=== PATIENT | female | born 1965 | race Caucasian/White ===

== ENCOUNTER 2020-06-13 00:05 | Inpatient (IN) | payer OTHER ==
[2020-06-12 04:00] VITALS: BP 135/99
[2020-06-13] VITALS (7 sets, daily range): BP systolic 103–187; BP diastolic 71–134
[~2020-06-13] VITALS: Ht 172.7 cm; Wt 124.7 kg
--- NOTE | ~2020-06-13 | EMS ---
[facility] [address] [place] [address] EMS Patient Care Report Name: COMPA FLORES Room: [address] IN [facility].#: [id number] Admission: 06/13/20 Attend Phys: Adele Ashley MD Discharge: Date of : 61 Report #: [id number] THIS REPORT FOR: //name// Report Transmitted: 06/13/2020 07:07 EMS Care Summary [facility] Incident [id number] @ 06/12/2020 23:03 Incident Location [address] [place] [address] Patient COMPA FLORES Female, 54 Years 1965 Patient Address [address] [place] [address] Patient History Cardiac Arrythmia, Patient Allergies No known allergies, Patient Medications Doxycycline, Aleve, Chief Complaint Covid-19 symptoms Disposition Transported No Lights/[place] Dispatch Reason Sick Person Transported To [facility] Narrative Dispatch: [facility] was dispatched for a female patient complaining of general weakness, and possible Covid-19 exposure. Delayed response noted for COVID 19 precautions for staff. Med 1 went enroute, non emergent, and arrived on scene. [facility] [address] [place] [address] EMS Patient Care Report Name: COMPA FLORES Room: [address] IN [facility]#: [id number] Admission: 06/13/20 Attend Phys: Adele Ashley MD Discharge: Date of : 61 Report #: [id number] Chief Complaint: Upon arrival, my partner and I find the patient sitting upright in her living room chair. Patient stated she had chest pressure, and shortness of breath. 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 She stated she "just didn't feel right." She states she has been running a fever, and experiencing weakness for the past 2 weeks. Patient did not appear to be in distress on initial contact. 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 She states she has been experiencing weakness, cough and a fever, along with chest pressure for the past 2 weeks. She states she has an irregular heartbeat, but "isn't for sure" due to not seeing her PCP. Her son stated that he feels his mother has been ill for almost a month. Assessment: Airway: Clear, patent and self maintained. Breathing: Clear and equal lung sounds bilaterally. Non labored. Circulation: Skin is pink, warm and dry. Pulse rate very weak and irregular. Disability: A&OX4, GCS 15. Exposure: No life threats were found. Reason for ambulance: Patient stated she was experiencing weakness, cough, and chest pressure due to possibly being exposed to a positive covid-19 patient. Patient decided to call 911 due to the shortness of breath. Treatments: ALS assessment. 12 lead/EKG. 3 IV attempts, 2 unsuccessful. 20G IV left hand. 400ML LR. Cardizem 0.25mg/kg (30mg IV push over 2 minutes) 2 Liters O2 via nasal canula. See section for further. Summary: Anthony Conrad arrived on scene to find the patient sitting upright in her living room chair. Patient stated she had SOB, weakness, cough and chest pressure. 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 A surgical mask was placed on the patient for covid precautions. Patient was placed onto the cot and placed into the ambulance. A 12 lead EKG was placed, and the patient presented in A-fib RVR with a heart rate of 190-200bpm. An IV was then started (attempted 3 times). We were unable obtain a manual BP after multiple attempts. Med 1 went en route to [place]. 30mg of Cardizem were given IV push over 2 minutes successfully. Patients heart rate slowly started to decline and rested around 115bpm. Patient stated her chest pressure had disappeared, and she "felt much better." 400ML of LR were given en route as well. Serial EKG's were performed throughout transport. Radio report was given to [facility] with no further orders were given. Med 1 arrived at [place] and the patient was taken to room 15 in the ED and was sheet transferred over [place] [address] EMS Patient Care Report Name: COMPA FLORES Room: [address] IN [facility].#: [id number] Admission: 06/13/20 Attend Phys: Adele Ashley MD Discharge: Date of : 61 Report #: [id number] was given to the nurse. Signatures and paperwork were received. Med 1 returned back in service. Initial Vitals @23:51P: 144,BP: 159/109,SpO2: 98,MA Suspected: false @23:24P: 184,SpO2: 100,MA Suspected: false @23:31BP: 142/76, @23:41P: 160,BP: 71/54,SpO2: 99, @23:43P: 182,BP: 142/105,SpO2: 99, @23:36P: 178,SpO2: 100,MA Suspected: false @23:16P: 190,R: 20,GCS: 15,SpO2: 77,MA Suspected: false @23:56P: 110,R: 18,GCS: 15,SpO2: 95, Assessments @23:09MENTAL:Person Oriented,Time Oriented,Event Oriented,Place Oriented,SKIN:HEENT:LUNG SOUNDS:ABDOMEN:PELVIS//GI:EXTREMITIES:PULSE:Radial: 2+ Normal,NEURO:@23:27MENTAL:Time Oriented,Person Oriented,Place Oriented,Event Oriented,SKIN:HEENT:LUNG SOUNDS:ABDOMEN:PELVIS//GI:EXTREMITIES:PULSE:Radial: 2+ Normal,NEURO: Impression Chest Pain / Discomfort Procedures @23:25Oxygen FlowRate: 2 Device: CO2 Nasal Cannula Response: ImprovedSucceeded@23:33Cardizem - 31 Milligrams (mg) - Intravenous (IV)Response: Improved@23:28Lactated Ringers 400cc (20 ga) Site: Hand-LeftResponse: UnchangedSucceeded@23:2412-Lead ECGResponse: UnchangedSucceeded@23:09ALS AssessmentResponse: UnchangedSucceeded@23:09Infectious Patient AlertResponse: Unchanged@23:26Saline Lock 0cc (20 ga) Site: Hand-RightResponse: UnchangedFailed@23:27Saline Lock 0cc (20 ga) Site: Hand-LeftResponse: UnchangedFailed Timeline 23:02,Call Received 23:03,Dispatched 23:05,En Route 23:08,On Scene 23:08,At Patient 23:09,ALS Assessment,Response: UnchangedSucceeded, 23:09,Infectious Patient Alert,Response: Unchanged 23:16,BP: / M,PULSE: 190,RR: 20 R,SPO2: 77 Ox,ETCO2: ,BG: ,PAIN: ,GCS: 15, 23:24,12-Lead ECG,Response: UnchangedSucceeded, 23:24,BP: / M,PULSE: 184,RR: R,SPO2: 100 Ox,ETCO2: ,BG: ,PAIN: ,GCS: , 23:25,Oxygen FlowRate: 2 Device: CO2 Nasal Cannula Response: ImprovedSucceeded, 23:26,Saline Lock 0cc 20 ga Site: Hand-Right,Response: UnchangedFailed, [place] [address] EMS Patient Care Report Name: COMPA FLORES Room: [address] IN [facility].#: [id number] Admission: 06/13/20 Attend Phys: Adele Ashley MD Discharge: Date of : 61 Report #: [id number] 23:27,Saline Lock 0cc 20 ga Site: Hand-Left,Response: UnchangedFailed, 23:27,Depart Scene 23:28,Lactated Ringers 400cc 20 ga Site: Hand-Left,Response: UnchangedSucceeded, 23:31,BP: 142/76 M,PULSE: ,RR: R,SPO2: Ox,ETCO2: ,BG: ,PAIN: ,GCS: , 23:33,Cardizem - 31 Milligrams (mg) - Intravenous (IV),Response: Improved 23:36,BP: / M,PULSE: 178,RR: R,SPO2: 100 Ox,ETCO2: ,BG: ,PAIN: ,GCS: , 23:41,BP: 71/54 M,PULSE: 160,RR: R,SPO2: 99 Ox,ETCO2: ,BG: ,PAIN: ,GCS: , 23:43,BP: 142/105 M,PULSE: 182,RR: R,SPO2: 99 Ox,ETCO2: ,BG: ,PAIN: ,GCS: , 23:51,BP: 159/109 M,PULSE: 144,RR: R,SPO2: 98 Ox,ETCO2: ,BG: ,PAIN: ,GCS: , 23:56,BP: / M,PULSE: 110,RR: 18 R,SPO2: 95 Ox,ETCO2: ,BG: ,PAIN: ,GCS: 15, 00:01,At Destination 00:53,Call Closed Disclaimer v1.1 Copyright 2020 [employer] This EMS Care Summary contains data elements from the applicable legal record (which may be displayed differently). It is designed to provide pertinent information for the following purposes: continuity of care, clinical quality, and state data reporting. The complete legal record is available to ED staff and administrators of the receiving hospital in [employer] Patient Tracker. All data is provided "as is."
[2020-06-13 00:41] LABS: ABSOLUTE BASOPHILS 0.1 thou/uL (0.0-0.2); ABSOLUTE EOSINOPHILS 0.2 thou/uL (0.0-0.7); ABSOLUTE LYMPHOCYTES 2.5 thou/uL (0.8-5.3); ABSOLUTE MONOCYTES 0.5 thou/uL (0.0-1.2); ABSOLUTE NEUTROPHILS 7.3 thou/uL (1.6-8.1); BASOPHILS 1.1 %; HEMATOCRIT 46.7 % (37.0-47.0); LYMPHOCYTES 23.2 %; MCH 31.9 pg (26.0-34.0); MCHC 34.3 g/dL (28.0-37.0); MPV 9.5 fl. (7.2-11.1); NUCLEATED RBCS 0 /100WBC; PLATELET COUNT* 239 thou/uL (150-400); POLYS 68.7 %; RBC 5.02 mil/uL (4.20-5.00); RDW-CV 14.4 % (10.5-14.5); WBC 10.7 thou/uL (4.0-11.0)
[2020-06-13 00:53] LABS: CREATININE 1.4 mg/dL (0.6-1.3); POTASSIUM 3.3 mmol/L (3.5-5.1)
[2020-06-13 00:56] LABS: INR 1.4
[2020-06-13 01:03] LABS: ALBUMIN 3.5 g/dL (3.4-5.0); MAGNESIUM 1.6 mg/dL (1.8-2.4); TOTAL BILIRUBIN 1.7 mg/dL (<0.1-1.0); TOTAL PROTEIN 6.8 g/dL (6.4-8.2)
[2020-06-13 02:39] LABS: URINE BILIRUBIN NEGATIVE (Negative); URINE BLOOD NEGATIVE (Negative); URINE CLARITY CLEAR; URINE COLOR YELLOW; URINE GLUCOSE-RANDOM NEGATIVE (Negative); URINE KETONES NEGATIVE (Negative); URINE NITRITE-REFLEX NEGATIVE (Negative); URINE PROTEIN NEGATIVE (Negative); URINE UROBILINOGEN 0.2 E.U./dl (0.2-1.0)
[2020-06-13 02:48] LABS: URINE LEUKOCYTES-REFLEX 2+ (Negative)
[2020-06-13 02:59] LABS: BACTERIA-REFLEX >30 Many /HPF (None Seen); CASTS None Seen /LPF (None Seen); CRYSTALS None Seen /LPF (None Seen); MUCUS 4-6 Moderate strn/LPF (None Seen); SQUAMOUS 4-10 Moderate /LPF (0-3); TRANSITIONAL EPITHEL CELL 0-3 Few /LPF (None Seen); URINE RBC 3-10 Few /HPF (0-2); URINE WBC-REFLEX >25 Many /HPF (0-5); WBC CLUMPS Moderate (None Seen)
[2020-06-13 11:10] LABS: HEMATOCRIT 45.9 % (37.0-47.0); HEMOGLOBIN 15.7 gm/dL (12.0-15.0); MCH 31.8 pg (26.0-34.0); MCHC 34.2 g/dL (28.0-37.0); MCV 93.2 fL (80.0-100.0); RBC 4.92 mil/uL (4.20-5.00); RDW-CV 14.8 % (10.5-14.5); WBC 10.4 thou/uL (4.0-11.0)
[2020-06-13 11:21] LABS: CALCIUM 9.1 mg/dL (8.5-10.1); CREATININE 1.3 mg/dL (0.6-1.3); POTASSIUM 3.1 mmol/L (3.5-5.1)
[2020-06-13 11:26] LABS: ALBUMIN 3.6 g/dL (3.4-5.0); TOTAL BILIRUBIN 1.8 mg/dL (<0.1-1.0); TOTAL PROTEIN 6.8 g/dL (6.4-8.2)
[2020-06-13 12:08] LABS: CHOLESTEROL 61 mg/dL (<200); HDL CHOLESTEROL 14 mg/dL (>40); LDL CHOLESTEROL 34 mg/dL (<100); MAGNESIUM 1.8 mg/dL (1.8-2.4); TC:HDL 4.4 Ratio (Not establshd); TOTAL BILIRUBIN 1.8 mg/dL (<0.1-1.0); TRIGLYCERIDE 66 mg/dL (<150); VLDL 13 mg/dL (<40)
[2020-06-13 12:13] LABS: SERUM ASSESSMENT Clear
--- NOTE | 2020-06-13 13:47 | 2DMMODE ---
[place] [address] 2 D/M-MODE ECHOCARDIOGRAM Name: COMPA FLORES Room: [address] IN M.R.#: [id number] Admission: 06/13/20 Attend Phys: Adele Ashley, Discharge: Date of : 61 Date of Service: 06/13/20 1347 Report #: [id number] THIS REPORT FOR: cc: FAM - No family physician/PCP FAM - No family physician/PCP Steffen Mcneal MD [facility] ~ APPROVED REPORT Study performed: 06/13/2020 10:25:49 EXAM: Comprehensive 2D, Doppler, and color-flow Echocardiogram Patient Location: Bedside BSA: 2.34 HR: 100 bpm BP: 135/99 mmHg Other Information Study Quality: Adequate Indications Atrial Fibrillation 2D Dimensions IVSd: 13.22 (7-11mm) LVOT Diam: 22.19 (18-24mm) LVDd: 44.89 mm PWd: 11.14 (7-11mm) Ascending Ao: 37.88 (22-36mm) LVDs: 37.11 (25-40mm) Aortic Root: 28.20 mm Volumes Left Atrial Volume (Systole) LA ESV Index: 36.20 mL/m2 Aortic Valve AoV Peak Nick.: 1.37 m/s AO Peak Gr.: 7.50 mmHg LVOT Max P.18 mmHg AO Mean Gr.: 4.95 mmHg LVOT Mean P.56 mmHg LVOT Max V: 0.89 m/s AO V2 VTI: 19.15 cm LVOT Mean V: 0.58 m/s BRIDGETT (VTI): 2.49 cm2 LVOT V1 VTI: 12.32 cm Mitral Valve E/A Ratio: 2.68 [place] [address] 2 D/M-MODE ECHOCARDIOGRAM Name: MARKCOMPA Room: [address] IN M.R.#: [id number] Admission: 06/13/20 Attend Phys: Adele Ashley, Discharge: Date of : 61 Date of Service: 06/13/20 1347 Report #: [id number] MV Decel. Time: 134.68 ms MV E Max Nick.: 0.96 m/s MV PHT: 39.06 ms MVA (PHT): 5.63 cm2 TDI E/Lateral E': 6.40 E/Medial E': 13.71 Medial E' Nick.: 0.07 m/s Lateral E' Nick.: 0.15 m/s Pulmonary Valve PV Peak Nick.: 0.79 m/s PV Peak Gr.: 2.49 mmHg Tricuspid Valve RAP Estimate: 20.00 mmHg TR Peak Gr.: 28.50 mmHg RVSP: 48.50 mmHg PA Pressure: 48.50 mmHg Left Ventricle The left ventricle is normal size. There is moderate diffuse hypokinesis of left ventricular wall motion. Borderline concentric left ventricular hypertrophy. Left ventricular systolic function is moderate to severely decreased. LVEF is 35%. This study is not technically sufficient to allow evaluation of the LV diastolic function due to atrial fibrillation. Right Ventricle Right ventricle is borderline dilated. The right ventricular systolic function is normal. Atria Left atrium is mildly dilated. Right atrium is mildly dilated. Aortic Valve Mild aortic valve sclerosis. No aortic regurgitation is present. There is no aortic valvular stenosis. Mitral Valve Moderate mitral annular calcification. Mild mitral regurgitation. No evidence of mitral valve stenosis. Tricuspid Valve The tricuspid valve is normal in structure. Mild to [place] [address] 2 D/M-MODE ECHOCARDIOGRAM Name: COMPA FLORES Room: [address]#: [id number] Admission: 06/13/20 Attend Phys: Adele Ashley, Discharge: Date of : 61 Date of Service: 06/13/20 1347 Report #: [id number] Pulmonic Valve The pulmonary valve is normal in structure. Trace pulmonic regurgitation. Great Vessels The aortic root is normal in size. IVC is dilated and collapses <50% with inspiration. Pericardium There is no pericardial effusion. <Conclusion> The left ventricle is normal size. Left ventricular systolic function is moderate to severely decreased. LVEF is 35%. This study is not technically sufficient to allow evaluation of the LV diastolic function due to atrial fibrillation. Right ventricle is borderline dilated. Left atrium is mildly dilated. Right atrium is mildly dilated. Mild aortic valve sclerosis. No aortic regurgitation is present. There is no aortic valvular stenosis. Moderate mitral annular calcification. Mild mitral regurgitation. The tricuspid valve is normal in structure. Mild to moderate tricuspid regurgitation. IVC is dilated and collapses <50% with inspiration. There is no pericardial effusion. There is moderate diffuse hypokinesis of left ventricular wall motion. <ELECTRONICALLY SIGNED> By: Steffen Mcneal MD, FACC 06/13/20 1347 46 134 Steffen Mcneal MD, FACC /INF
--- NOTE | 2020-06-13 13:55 | EKG ---
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 : 1965 Requested By: Vijaya Campos Order Number: [id number] MD: Steffen Mcneal Measurements Intervals [place] Rate: 126 P: SC: QRS: 8 QRSD: 99 T: 182 QT: 311 QTc: 451 Interpretive Statements Atrial fibrillation Ventricular premature complex Anteroseptal infarct, old possible Nonspecific T abnormalities, lateral leads No previous ECG available for comparison Electronically Signed On 06-13-2020 13:55:08 CDT by Steffen Mcneal [email or web address] <ELECTRONICALLY SIGNED> By: Steffen Mcneal MD, [facility] 06/13/20 1355 001 0012 Steffen Mcneal MD, [facility] /EPI
[2020-06-13 16:01] LABS: URINE POTASSIUM-RANDOM 7.6 mmol/L
[2020-06-14] VITALS: BP 100/65
[2020-06-14 03:06] LABS: HEPATITIS B SURFACE AG Negative (Negative)
[2020-06-14 04:00] VITALS: BP 107/51
[2020-06-14 08:00] VITALS: BP 120/93
[2020-06-14 09:47] LABS: CALCIUM 8.6 mg/dL (8.5-10.1); CREATININE 1.5 mg/dL (0.6-1.3); MAGNESIUM 1.9 mg/dL (1.8-2.4); POTASSIUM 3.9 mmol/L (3.5-5.1)
[2020-06-14 12:52] VITALS: BP 130/91
[2020-06-14 18:03] VITALS: BP 124/91
[2020-06-14 21:00] VITALS: BP 134/105
[2020-06-15] VITALS: BP 109/81
[2020-06-15 04:00] VITALS: BP 124/96
[2020-06-15 04:44] LABS: HEMATOCRIT 44.4 % (37.0-47.0); HEMOGLOBIN 15.3 gm/dL (12.0-15.0); MCHC 34.5 g/dL (28.0-37.0); MCV 92.5 fL (80.0-100.0); MPV 9.9 fl. (7.2-11.1); RBC 4.8 mil/uL (4.20-5.00); RDW-CV 15.2 % (10.5-14.5); WBC 10.6 thou/uL (4.0-11.0)
[2020-06-15 04:50] LABS: CALCIUM 8.2 mg/dL (8.5-10.1); CREATININE 1.7 mg/dL (0.6-1.3); MAGNESIUM 1.8 mg/dL (1.8-2.4); POTASSIUM 3.8 mmol/L (3.5-5.1)
[2020-06-15 07:30] VITALS: BP 143/101
[2020-06-15 11:49] VITALS: BP 121/90
[2020-06-15 16:05] VITALS: BP 124/87
[2020-06-15 20:05] VITALS: BP 112/75
[2020-06-16] VITALS: BP 119/88
[2020-06-16 04:00] VITALS: BP 101/71
[2020-06-16 05:11] LABS: HEMATOCRIT 44.4 % (37.0-47.0); MCH 31.8 pg (26.0-34.0); MCHC 33.9 g/dL (28.0-37.0); MCV 93.8 fL (80.0-100.0); RBC 4.73 mil/uL (4.20-5.00); WBC 10.2 thou/uL (4.0-11.0)
[2020-06-16 05:46] LABS: CALCIUM 8.3 mg/dL (8.5-10.1); CREATININE 1.4 mg/dL (0.6-1.3); TOTAL PROTEIN 6.1 g/dL (6.4-8.2)
[2020-06-16 07:56] VITALS: BP 130/93
[2020-06-16] MEDS ORDERED: XARELTO20 MG PO (09:09)
[2020-06-16] MEDS ORDERED: COREG6.25 MG PO (09:09)
[2020-06-16] MEDS ORDERED: SPIRONOLACTONE25 MG PO (09:09)
[2020-06-16] MEDS ORDERED: LASIX 40 MG TAB40 M1 PO (09:09)
[2020-06-16] MEDS ORDERED: PACERONE 200 M200 M1 PO ×2 (09:09→10:45)
[2020-06-16] MEDS ORDERED: COZAAR 50 MG TA50 M1 PO (09:09)
[2020-06-16] MEDS ORDERED: POTASSIUM20 PO (09:09)
--- NOTE | 2020-06-16 09:45 | EKG ---
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: : 1965 Requested By: Kalpesh Perkins Order Number: [id number] Colt MD: Kalpesh Perkins Measurements Intervals [place] Rate: 55 P: -18 CT: 122 QRS: 10 QRSD: 142 T: 209 QT: 563 QTc: 539 Interpretive Statements Sinus bradycardia Probable left atrial enlargement Abnrm T, consider ischemia, anterolateral lds Prolonged QT interval Compared to ECG 06/13/2020 00:12:11 Possible ischemia now present Prolonged QT interval now present Atrial fibrillation no longer present Ventricular premature complex(es) no longer presen Electronically Signed On 06-16-2020 9:44:59 CDT by Kalpesh Perkins [email or web address] <ELECTRONICALLY SIGNED> By: Kalepsh Perkins MD, [facility] 06/16/2044 9 9 Kalpesh Perkins MD, [facility] /EPI
[2020-06-16] MEDS ORDERED: CEFUROXIME250 MG PO (10:00)
[2020-06-16 12:35] VITALS: BP 121/79
[2020-06-16 13:08] VITALS: BP 121/79
== END 2020-06-16 16:12 | disposition home or self-care (01) | DRG 291 ==
LOC: M.ERS 00:05 → M.TBA-ER 01:47 → M.2W 03:51
PROVIDERS: Emergency Medicine; Internal Medicine; ADMIT Internal Medicine; ATTEND Internal Medicine
DX: I50.23 Acute on chronic systolic (congestive) heart failure (principal); N17.0 Acute kidney failure with tubular necrosis; Z68.41 Body mass index [BMI] 40.0-44.9, adult; I48.20 Chronic atrial fibrillation, unspecified; I42.9 Cardiomyopathy, unspecified; J98.11 Atelectasis; B17.10 Acute hepatitis C without hepatic coma; N28.0 Ischemia and infarction of kidney; N30.91 Cystitis, unspecified with hematuria; E66.01 Morbid (severe) obesity due to excess calories; E87.6 Hypokalemia; F17.210 Nicotine dependence, cigarettes, uncomplicated; I48.0 Paroxysmal atrial fibrillation; Z20.828 Contact with and (suspected) exposure to other viral communicable diseases